=== PATIENT | female | born 1965 | race American Indian/Alaskan Native ===

== ENCOUNTER 2020-09-22 16:59 | Emergency (ER) | payer MEDICARE ==
[2020-09-22] MEDS ORDERED: HYDROmorphone 1 MG/1 ML INJ IV ONE (20:19)
[2020-09-22] MEDS ORDERED: KETOROLAC 30 MG/1 ML INJ IV ONE (20:19)
[2020-09-22] MEDS ORDERED: ONDANSETRON 4 MG/2 ML INJ IV ONE (20:19)
[2020-09-22] MEDS ORDERED: SODIUM CHLORIDE 0.9% 1000 ML 1,000 ML IV ONE (20:19)
--- NOTE | 2020-09-22 20:23 | Emergency Department Report ---
ED General Adult HPI - General Chief complaint: Pain General Stated complaint: SICK/EXTREME PAIN PUI?: No Time Seen by Provider: 09/22/20 20:19 Source: patient Mode of arrival: Ambulatory Limitations: Physical Limitation - History of Present Illness Initial comments: Patient is a 54-year-old female that presents emergency room with complaints of right abdominal pain, right flank pain, severe back pain, difficulties walking, falls, head injury and right hand pain.. Patient states that she has chronic back pain and that she has a Dilaudid pump but is not working. Patient states she is visiting from [place]. Patient states that she has had multiple falls. Patient states that her pain is a 10 out of 10. Patient states her pain is better with rest and worse with movement. Patient states that she has had multiple back surgeries. Patient states she is not sure if she lost consciousness during the fall. Patient states that she fell and hit her right flank and right lower abdomen. Patient denies recent travel. Patient denies recent international travel. Patient denies exposure to the novel coronavirus. Patient denies sick contacts. Patient denies fever and chills. Patient denies cough. Patient denies d iarrhea. Patient denies coming in contact with anybody with symptoms of the novel coronavirus. -: Sudden Location: back, abdomen Severity scale (0 -10): 10 Quality: stabbing Consistency: constant Improves with: rest Worsens with: movement Associated Symptoms: weakness Treatments Prior to Arrival: none - Related Data Previous Rx's Medication Instructions Recorded Last Taken Type Sulfamethoxazole/Trimethoprim 1 each PO BID 10 Days #20 tablet 09/23/20 Unknown Rx [Bactrim DS TAB] Allergies Allergy/AdvReac Type Severity Reaction Status Date / Time morphine Allergy Nausea Verified 09/22/20 17:17 ED Review of Systems ROS: Stated complaint: SICK/EXTREME PAIN Other details as noted in HPI Constitutional: weakness. denies: chills, fever Eyes: denies: eye pain, eye discharge, vision change ENT: denies: ear pain, throat pain Respiratory: denies: cough, shortness of breath, wheezing Cardiovascular: denies: chest pain, palpitations Endocrine: no symptoms reported Gastrointestinal: abdominal pain. denies: nausea, diarrhea Genitourinary: denies: urgency, dysuria, discharge Musculoskeletal: back pain. denies: joint swelling, arthralgia Skin: denies: rash, lesions Neurological: denies: headache, weakness, paresthesias Psychiatric: denies: anxiety, depression Hematological/Lymphatic: denies: easy bleeding, easy bruising ED Past Medical Hx - Past Medical History Previous Medical History?: Yes Hx Arthritis: Yes Hx COPD: Yes Additional medical history: back pain and injury. Hx of WPW, Hx of bowel obstruction - Surgical History Past Surgical History?: Yes Additional Surgical History: Back surgeries x 6, Colon resection, Right shoulder, right index finger - Family History Family history: no significant - Social History Smoking Status: Current Every Day Smoker Substance Use Type: Alcohol, Prescribed - Medications Home Medications: Home Medications Medication Instructions Recorded Confirmed Last Taken Type Sulfamethoxazole/Trimethoprim 1 each PO BID 10 Days #20 tablet 09/23/20 Unknown Rx [Bactrim DS TAB] ED Physical Exam - General Limitations: Physical Limitation General appearance: alert, in no apparent distress - Head Head exam: Present: normocephalic, other (Ecchymosis noted to the frontal regio n.) - Eye Eye exam: Present: normal appearance, PERRL Pupils: Present: normal accommodation - ENT ENT exam: Present: mucous membranes moist - Neck Neck exam: Present: normal inspection - Respiratory Respiratory exam: Present: normal lung sounds bilaterally. Absent: respiratory distress - Cardiovascular Cardiovascular Exam: Present: regular rate, normal rhythm. Absent: systolic murmur, diastolic murmur, rubs, gallop - GI/Abdominal GI/Abdominal exam: Present: soft, normal bowel sounds - Extremities Exam Extremities exam: Present: normal inspection - Back Exam Back exam: Present: normal inspection - Neurological Exam Neurological exam: Present: alert, oriented X3 - Psychiatric Psychiatric exam: Present: normal affect, normal mood - Skin Skin exam: Present: warm, dry, intact, normal color. Absent: rash ED Course Vital Signs 09/22/20 09/22/20 17:22 20:51 Temperature 99.7 F H 99.3 F Pulse Rate 75 80 Respiratory 20 20 Rate Blood Pressure 140/88 127/80 [Right] O2 Sat by Pulse 94 99 Oximetry - Reevaluation(s) Reevaluation #1: Patient's pain has improved. Patient states she is ambulating better. 09/22/20 21:07 Reevaluation #2: Patient states her pain is returning. Patient was given another milligram of Dilaudid/. 09/22/20 22:38 Reevaluation #3: Patient patient was able to ambulate multiple times in the ER. Patient stable on her feet. Patient states she is feeling much better. Patient states that she is ready to go home. Patient states she does not want to stay in the hospital. I discussed all results and clinical findings with patient. I discussed plan of care with patient. Patient agrees with plan of care. Patient is stable for discharge. Patient will be discharged home. Patient given discharge instructions. Patient voiced understanding of discharge instructions. 09/23/20 01:39 ED Medical Decision Making - Lab Data Result diagrams: 09/22/20 21:49 09/22/20 22:44 - EKG Data -: EKG Interpreted by Me EKG shows normal: sinus rhythm, axis, intervals, ST-T waves Rate: bradycardia - EKG Data Interpretation: other (Right bundle branch block.) - Radiology Data Radiology results: report reviewed CHEST 1 VIEW 09/22/2020 7:49 PM INDICATION / CLINICAL INFORMATION: falls. COMPARISON: None available. FINDINGS: SUPPORT DEVICES: None. HEART / MEDIASTINUM: No significant abnormality. LUNGS / PLEURA: No significant pulmonary or pleural abnormality. No pneumothorax. ADDITIONAL FINDINGS: Bilateral thoracolumbar Zamora rods. IMPRESSION: 1. No acute findings. CT ABDOMEN AND PELVIS WITH CONTRAST INDICATION / CLINICAL INFORMATION: Abdominal Pain. TECHNIQUE: Axial CT images were obtained through the abdomen and pelvis after 100 mL Omnipaque [address] scans at this location are performed using CT dose reduction for ALARA by means of automated exposure control. COMPARISON: None available. FINDINGS: LOWER CHEST: Right lower lobe calcified granuloma. LIVER: No significant abnormality. BILIARY SYSTEM: No significant abnormality. PANCREAS: No significant abnormality. SPLEEN: No significant abnormality. ADRENALS: No significant abnormality. KIDNEYS and URETERS: No significant abnormality. STOMACH / BOWEL: No significant abnormality. Postsurgical change is seen within a loop of small bowel in the left midabdomen, without evidence of complication. PERITONEUM: No free fluid. No free air. No fluid collection. LYMPH NODES: No significant adenopathy. VASCULAR STRUCTURES: No significant abnormality. URINARY BLADDER: No significant abnormality. REPRODUCTIVE ORGANS: No significant abnormality. A tubal occlusion device is seen on the left. ADDITIONAL FINDINGS: None. SKELETAL SYSTEM: Posterior thoracolumbar spinal fixation hardware in place. A neurostimulator device is seen implanted in the left lower back with stimulator lead seen terminating in the central canal of the lower thoracic spine. IMPRESSION: 1. No acute process identified within the abdomen or pelvis to account for patient's abdominal pain. CT head/brain wo con INDICATION: head injury. falls. TECHNIQUE: Routine CT head without contrast. All CT scans at this location are performed using CT dose reduction for ALARA by means of automated exposure control. COMPARISON: None. FINDINGS: BRAIN / INTRACRANIAL CONTENTS: No acute hemorrhage, mass effect, midline shift, or hydrocephalus. No appreciable acute large territorial or lacunar infarct. No chronic infarct or focal atrophy. Normal brain volume and ventricular/sulcal size for age. ORBITS: No significant abnormality of visualized orbits. SINUSES / MASTOIDS: No significant abnormality of visualized sinuses and mastoid air cells. ADDITIONAL FINDINGS: None. IMPRESSION: 1. No acute intracranial abnormality. RIGHT HAND 2 VIEW(S) INDICATION / CLINICAL INFORMATION: right hand pain COMPARISON: None available. FINDINGS: BONES / JOINT(S): No acute fracture or subluxation. Mild degenerative arthrosis DIP joints right hand SOFT TISSUES: No significant abnormality. ADDITIONAL FINDINGS: None. - Medical Decision Making Patient is a 54-year-old female who presents emergency room with multiple complaints. Patient complains of of weakness, unsteady gait, falls, head injury, right abdominal pain secondary to a fall, hand pain secondary to a fall and back pain. Patient states her back pain is severe and is chronic. Patient had a x-ray of her lumbar spine since she had recent falls. Patient lumbar spine x-ray does not show any acute fracture and only chronic changes. Patient had a hand x-ray which was negative for fracture. Patient had an abdominal CT with IV contrast to rule out a traumatic event to the abdomen and it was negative for acute findings. Patient had a head CT since she had a head injury secondary to a fall. Patient's head CT was negative for acute findings. Patient's chest x-ray was negative. Patient had labs which were essentially unremarkable except for UTI.. Patient was given 2 doses of Dilaudid and a dose of Toradol and her pain improved. Patient's gait improved with pain management. Patient treated with oral antibiotics as an outpatient. Patient stable for discharge. Patient discharged home. - Differential Diagnosis Weakness, chronic back pain, hand pain, FX, strain, sprain, contusion, ABD Critical care attestation.: If time is entered above; I have spent that time in minutes in the direct care of this critically ill patient, excluding procedure time. ED Disposition Clinical Impression: Weakness, Right flank pain, Right hand pain, Unsteady gait Falls Qualifiers: Encounter type: initial encounter Qualified Code(s): W19.XXXA - Unspecified fall, initial encounter Abdominal pain Qualifiers: Abdominal location: right lower quadrant Qualified Code(s): R10.31 - Right lower quadrant pain Back pain Qualifiers: Back pain location: low back pain Chronicity: acute Back pain laterality: midline Sciatica presence: without sciatica Qualified Code(s): M54.5 - Low back pain UTI (urinary tract infection) Qualifiers: Urinary tract infection type: acute cystitis Hematuria presence: with hematuria Qualified Code(s): N30.01 - Acute cystitis with hematuria Abdominal wall contusion Qualifiers: Encounter type: initial encounter Qualified Code(s): S30.1XXA - Contusion of abdominal wall, initial encounter Hand contusion Qualifiers: Encounter type: initial encounter Laterality: right Qualified Code(s): S60.221A - Contusion of right hand, initial encounter Head injury Qualifiers: Encounter type: initial encounter Qualified Code(s): S09.90XA - Unspecified injury of head, initial encounter Disposition: TO HOME OR SELFCARE Is pt being admited?: No Does the pt Need Aspirin: No Condition: Stable Instructions: Hand Exercises, Hand Pain, Chronic Back Pain, Abdominal Pain, Adult, [id number], Contusion, [id number], Abdominal Pain, Adult Additional Instructions: Patient to follow-up with primary care in 2 to 3 days. Patient to follow-up with pain management and orthopedist. In 2 to 3 days. Patient to rest. Patient to increase water. Patient to take Tylenol or ibuprofen as needed for pain. Patient to take meds as directed. Patient to return to the ER if condition worsens, changes or new symptoms arise. Prescriptions: Sulfamethoxazole/Trimethoprim [Bactrim DS TAB] 1 each PO BID 10 Days #20 tablet Referrals: [facility] [Other] - 2-3 Days KIRSTEN BEAN MD [Staff Physician] - 2-3 Days Time of Disposition: 01:56
--- NOTE | 2020-09-22 20:57 | XRay Report ---
RIGHT HAND 2 VIEW(S) INDICATION / CLINICAL INFORMATION: right hand pain COMPARISON: None available. FINDINGS: BONES / JOINT(S): No acute fracture or subluxation. Mild degenerative arthrosis DIP joints right hand SOFT TISSUES: No significant abnormality. ADDITIONAL FINDINGS: None. Signer Name: Dmitri Rodrigues MD Signed: 09/22/2020 8:53 PM Workstation Name: [id number]
--- NOTE | 2020-09-22 20:58 | XRay Report ---
CHEST 1 VIEW 09/22/2020 7:49 PM INDICATION / CLINICAL INFORMATION: falls. COMPARISON: None available. FINDINGS: SUPPORT DEVICES: None. HEART / MEDIASTINUM: No significant abnormality. LUNGS / PLEURA: No significant pulmonary or pleural abnormality. No pneumothorax. ADDITIONAL FINDINGS: Bilateral thoracolumbar Zamora rods. IMPRESSION: 1. No acute findings. Signer Name: Dmitri Rodrigues MD Signed: 09/22/2020 8:53 PM Workstation Name: [id number]
[2020-09-22 22:10] LABS: Basophils # (Auto) 0.1 K/mm3 (0.0-0.1); Basophils % (Auto) 0.6 % (0.0-1.8); Eosinophils # (Auto) 0.2 K/mm3 (0.0-0.4); Eosinophils % (Auto) 1.5 % (0.0-4.3); Hematocrit 41.2 % (30.3-42.9); Hemoglobin 13.4 gm/dl (10.1-14.3); Lymphocytes # (Auto) 3.1 K/mm3 (1.2-5.4); Lymphocytes % (Auto) 30.9 % (13.4-35.0); Mean Corpuscular HGB Conc 33 % (30-34); Mean Corpuscular Volume 87 fl (79-97); Monocytes # (Auto) 0.9 K/mm3 (0.0-0.8); Monocytes % (Auto) 9.3 % (0.0-7.3); Platelet Count 257 K/mm3 (140-440); Red Blood Count 4.76 M/mm3 (3.65-5.03); Red Cell Distribution Width 16.8 % (13.2-15.2)
[2020-09-22] MEDS ORDERED: HYDROmorphone 2 MG/1 ML INJ IV ONE (22:25)
[2020-09-22 23:39] LABS: Alanine Aminotransferase 13 units/L (7-56); Albumin 4.3 g/dL (3.9-5); Blood Urea Nitrogen 14 mg/dL (7-17); Calcium 8.4 mg/dL (8.4-10.2); Hemolysis Index 6
[2020-09-22 23:47] LABS: Creatine Kinase MB 2.1 ng/mL (0.0-4.0)
[2020-09-22 23:51] LABS: BUN/Creatinine Ratio 23
[2020-09-22 23:52] LABS: Bilirubin,Direct < 0.2 mg/dL (0-0.2)
[2020-09-23 00:45] LABS: Bacteria,Urine 1+ /HPF (Negative); Bilirubin,Urine NEG (Negative); Blood,Urine NEG (Negative); Color,Urine Yellow (Yellow); Mucus,Urine FEW /HPF
--- NOTE | 2020-09-23 00:46 | Cat Scan Report ---
CT ABDOMEN AND PELVIS WITH CONTRAST INDICATION / CLINICAL INFORMATION: Abdominal Pain. TECHNIQUE: Axial CT images were obtained through the abdomen and pelvis after 100 mL Omnipaque [address] scans at this location are performed using CT dose reduction for ALARA by means of automated exposure control. COMPARISON: None available. FINDINGS: LOWER CHEST: Right lower lobe calcified granuloma. LIVER: No significant abnormality. BILIARY SYSTEM: No significant abnormality. PANCREAS: No significant abnormality. SPLEEN: No significant abnormality. ADRENALS: No significant abnormality. KIDNEYS and URETERS: No significant abnormality. STOMACH / BOWEL: No significant abnormality. Postsurgical change is seen within a loop of small bowel in the left midabdomen, without evidence of complication. PERITONEUM: No free fluid. No free air. No fluid collection. LYMPH NODES: No significant adenopathy. VASCULAR STRUCTURES: No significant abnormality. URINARY BLADDER: No significant abnormality. REPRODUCTIVE ORGANS: No significant abnormality. A tubal occlusion device is seen on the left. ADDITIONAL FINDINGS: None. SKELETAL SYSTEM: Posterior thoracolumbar spinal fixation hardware in place. A neurostimulator device is seen implanted in the left lower back with stimulator lead seen terminating in the central canal o f the lower thoracic spine. IMPRESSION: 1. No acute process identified within the abdomen or pelvis to account for patient's abdominal pain. Signer Name: Nati Adknis MD Signed: 09/23/2020 12:42 AM Workstation Name: [id number]
--- NOTE | 2020-09-23 00:52 | Cat Scan Report ---
CT head/brain wo con INDICATION: head injury. falls. TECHNIQUE: Routine CT head without contrast. All CT scans at this location are performed using CT dos e reduction for ALARA by means of automated exposure control. COMPARISON: None. FINDINGS: BRAIN / INTRACRANIAL CONTENTS: No acute hemorrhage, mass effect, midline shift, or hydrocephalus. No appreciable acute large territorial or lacunar infarct. No chronic infarct or focal atrophy. Normal b rain volume and ventricular/sulcal size for age. ORBITS: No significant abnormality of visualized orbits. SINUSES / MASTOIDS: No significant abnormality of visualized sinuses and mastoid air cells. ADDITIONAL FINDINGS: None. IMPRESSION: 1. No acute intracranial abnormality. Signer Name: Nati Adkins MD Signed: 09/23/2020 12:48 AM Workstation Name: [id number]
[2020-09-23 02:26] VITALS: BP 128/72
== END 2020-09-23 02:27 | disposition home or self-care (01) ==
LOC: ED 16:59
DX: S60.221A Contusion of right hand, initial encounter (principal); S30.1XXA Contusion of abdominal wall, initial encounter; S09.90XA Unspecified injury of head, initial encounter; N39.0 Urinary tract infection, site not specified; M54.5 Low back pain; M25.541 Pain in joints of right hand; R10.31 Right lower quadrant pain; R53.1 Weakness; R26.81 Unsteadiness on feet; M19.90 Unspecified osteoarthritis, unspecified site; J44.9 Chronic obstructive pulmonary disease, unspecified; F17.200 Nicotine dependence, unspecified, uncomplicated; Z79.899 Other long term (current) drug therapy; Z98.890 Other specified postprocedural states; Z88.6 Allergy status to analgesic agent; W18.30XA Fall on same level, unspecified, initial encounter; Y93.89 Activity, other specified; Y92.89 Other specified places as the place of occurrence of the external cause; Y99.8 Other external cause status
CPT/HCPCS: 36415; 70450; 71045; 73120; 74177; 80048; 80076; 81001; 82550; 82553; 84484; 85025; 93005; 96361; 96374; 96375; 96376; 99285; J1170; J1885; J2405; J7030; Q9967